=== PATIENT | female | born 1990 | race Caucasian/White ===

== ENCOUNTER 2018-02-16 22:14 | Emergency (ER) | payer OTHER ==
[~2018-02-16] VITALS: Ht 160 cm; Wt 52.2 kg
[2018-02-16 22:20] VITALS: BP 122/75
[2018-02-16] MEDS ORDERED: IV RINGERS SOLUTION,LACTATED 1,000 ML IV SCH (22:33)
--- NOTE | 2018-02-16 22:33 | ED.ADGEN ---
Adult General Chief Complaint Chief Complaint ".. I got a bump down on my private area.. and looked like puss coming out .....and it gotten really sore.... I can't hardly walk.. I ve had some cysts before...they had to drain...".." It is so swollen I can't pee" HPI HPI Patient is a 27 year old female who presents with complaints of cyst and pus drainage . Pain in vaginal area increasing the last 3-4 days. Pt. Life time sexual partners x 15-20. Pt. denies hx of STD. No travel or specific ill contacts. Pt. denies immunosuppression. No hx recent travel or specific ill contacts. Tetanus up to date. Review of Systems Review of Systems Constitutional:Complaints of fever. Eyes: Denies change in visual acuity, redness, or eye pain [] HENT: Denies nasal congestion or sore throat [] Respiratory: Denies cough or shortness of breath [] Cardiovascular: No additional information not addressed in HPI [] GI: Denies abdominal pain, nausea, vomiting, bloody stools or diarrhea [] : Denies dysuria or hematuria [] Complaints of vaginal abscess. Musculoskeletal: Denies back pain or joint pain [] Integument: Denies rash or skin lesions [] Neurologic: Denies headache, focal weakness or sensory changes [] Endocrine: Denies polyuria or polydipsia [] All other systems were reviewed and found to be within normal limits, except as documented in this note. Family History Family History Non-contributory Current Medications Current Medications Current Medications Medications (Trade) Dose Ordered Sig/Wai Start Time Stop Time Status Last Admin Dose Admin Azithromycin (Zithromax) 1,000 mg 1X ONCE 02/16/18 22:45 02/16/18 22:46 UNV 02/17/18 00:38 1,000 MG Bupivacaine HCl (Sensorcaine Mpf 0.5%) 30 ml 1X ONCE 02/16/18 22:45 02/16/18 22:46 UNV Ceftriaxone Sodium 1 gm/ Sodium Chloride 50 ml @ 100 mls/hr 1X ONCE 02/16/18 22:45 02/16/18 23:14 UNV Ceftriaxone Sodium (Rocephin) 1 gm STK-MED ONCE 02/17/18 00:29 5/29/18 00:32 DC Ketorolac Tromethamine (Toradol) 60 mg 1X ONCE 02/17/18 00:15 02/17/18 00:16 UNV 02/17/18 00:41 60 MG Lactated Ringer's 1,000 ml @ 1,000 mls/hr Q1H 02/16/18 22:33 02/16/18 23:32 UNV Lidocaine HCl 20 ml 1X ONCE 02/16/18 22:45 02/16/18 22:46 UNV Metronidazole (Flagyl) 2,000 mg 1X ONCE 02/16/18 22:45 02/16/18 22:46 UNV 02/17/18 00:36 2,000 MG Ondansetron HCl (Zofran Odt) 8 mg 1X ONCE 02/16/18 22:45 02/16/18 22:46 UNV See Nursing for home meds. Allergies Allergies NKDA Physical Exam Physical Exam Constitutional: Well developed, well nourished, in acute distress, non-toxic appearance. [] HENT: Normocephalic, atraumatic, bilateral external ears normal, oropharynx moist, no oral exudates, nose normal. [] Eyes: PERRLA, EOMI, conjunctiva normal, no discharge. [] Neck: Normal range of motion, no tenderness, supple, no stridor. [] Cardiovascular:Heart rate regular rhythm, no murmur [] Lungs & Thorax: Bilateral breath sounds equal at apex on auscultation [] Abdomen: Bowel sounds normal, soft, no tenderness, no masses, no pulsatile masses. [] Pt. has a 3 cm x 3 cm abscess. Lt. side Labia minora, appear to tract into vaginal wall. No cervical motion tenderness or adnexal tenderness. Rectal not tender. Skin: Warm, dry, no erythema, no rash. [] Back: No tenderness, no CVA tenderness. [] Extremities: No tenderness, no cyanosis, no clubbing, ROM intact, no edema. [] Neurologic: Alert and oriented X 3, normal motor function, normal sensory function, no focal deficits noted. [] Psychologic: Affect normal, judgement normal, mood normal. [] Current Patient Data Lab Results Laboratory Tests Test 02/16/18 22:35 Urine Collection Type Unknown Urine Color Yellow Urine Clarity Clear Urine pH 7.0 Urine Specific [place] 1.025 Urine Protein Neg (NEG-TRACE) Urine Glucose (UA) Neg mg/dL (NEG) Urine Ketones (Stick) Neg mg/dL (NEG) Urine Blood Trace (NEG) Urine Nitrite Neg (NEG) Urine Bilirubin Neg (NEG) Urine Urobilinogen Dipstick 0.2 mg/dL (0.2 mg/dL) Urine Leukocyte Esterase Neg (NEG) Urine RBC 0 /HPF (0-2) Urine WBC Occ /HPF (0-4) Urine Squamous Epithelial Cells Occ /LPF Urine Bacteria 0 /HPF (0-FEW) Urine Opiates Screen Neg (NEG) Urine Methadone Screen Neg (NEG) Urine Barbiturates Neg (NEG) Urine Phencyclidine Screen Neg (NEG) Urine Amphetamine/Methamphetamine Neg (NEG) Urine Benzodiazepines Screen Neg (NEG) Urine Cocaine Screen Neg (NEG) Urine Cannabinoids Screen Neg (NEG) Urine Ethyl Alcohol Neg (NEG) EKG EKG [] Radiology/Procedures Radiology/Procedures [] Course & Med Decision Making Course & Med Decision Making Pertinent Labs and Imaging studies reviewed. (See chart for details) Pt. refusing IV and Labs. Procedure Note: Incision and Drainage- Prepped area with betadine. Sensorcaine / Lidocaine- to abscess site. Stick x 1 with ll blade- resulted marked release of puss under pressure. 1/4 wide packing strip placed with 3- 0 vicryl suture x 1 to hold packing in. Pt. to have packing removed in 3 days. Sitz baths. Must follow up cultures. Keflex 500 three times a day x 10 days. Diflucan 100 x 3 days when antibiotic completed. Tylenol and Ibuprofen for pain. Must follow up. Area made need further surgical debridement. Return if any concerns. [] Final Impression Final Impression 1. []Labial-abscess Dragon Disclaimer Dragon Disclaimer This electronic medical record was generated, in whole or in part, using a voice recognition dictation system. LARA TALBOT MD February 16, 2018 22:32
[2018-02-16] MEDS ORDERED: LIDOCAINE 2% 20 ML VIAL. IJ ONE (22:45)
[2018-02-16] MEDS ORDERED: AZITHROMYCIN 250 MG TABLET. PO ONE (22:45)
[2018-02-16] MEDS ORDERED: ONDANSETRON ODT 4 MG TAB.RAPDIS PO ONE (22:45)
[2018-02-16] MEDS ORDERED: metroNIDAZOLE 500 MG TABLET PO ONE (22:45)
[2018-02-16] MEDS ORDERED: BUPIVACAINE MPF 0.5% 30 ML VIAL. SQ ONE (22:45)
[2018-02-16 23:17] LABS: BACTERIA,URINE 0 /HPF (0-FEW); BARBITURATES NEG (NEG); BENZODIAZEPINES NEG (NEG); BILIRUBIN,URINE NEG (NEG); CANNABINOIDS NEG (NEG); CLARITY,URINE CLEAR; COCAINE NEG (NEG); COLOR,URINE YELLOW; GLUCOSE,URINE NEG (NEG); METHADONE NEG (NEG); NITRITE,URINE NEG (NEG); OPIATES NEG (NEG); PHENCYCLIDINE NEG (NEG); RBC,URINE 0 /HPF (0-2); UROBILINOGEN,URINE 0.2 mg/dL (0.2 mg/dL); WBC,URINE OCC /HPF (0-4)
[2018-02-16 23:18] LABS: AMPHETAMINE/METHAMPHETAMINE NEG (NEG); SQUAMOUS EPITHELIAL CELL,UR OCC /LPF
[2018-02-17] MEDS ORDERED: KETOROLAC 60 MG/2 ML VIAL. IM ONE ×2 (00:15→00:31)
[2018-02-17] MEDS ORDERED: ONDANSETRON ODT 4 MG TAB.RAPDIS ONE (00:20)
[2018-02-17] MEDS ORDERED: CEPH-264 PO (00:22)
[2018-02-17] MEDS ORDERED: FLUC100T7 PO (00:22)
[2018-02-17] MEDS ORDERED: HYDR-79 PO (00:22)
[2018-02-17] MEDS ORDERED: cefTRIAXone SODIUM 1 GM VIAL IV ONE (00:29)
[2018-02-17] MEDS ORDERED: metroNIDAZOLE 500 MG TABLET ONE (00:30)
[2018-02-17] MEDS ORDERED: AZITHROMYCIN 250 MG TABLET. ONE (00:31)
== END 2018-02-17 01:29 | disposition home or self-care (01) ==
LOC: ER 22:14
DX: N76.4 Abscess of vulva (principal)
CPT/HCPCS: 36415; 56405; 80307; 81001; 81025; 96372; 99284; J0456; J1885; G0479

== ENCOUNTER 2018-02-19 13:27 | Emergency (ER) | payer OTHER ==
[~2018-02-19 13:27] MED LIST: CEPH-264 PO; FLUC100T7 PO; HYDR-79 PO
[2018-02-19 14:26] VITALS: BP 105/54
--- NOTE | 2018-02-19 14:31 | PHYS DOC ---
Past History Past Medical History: Other Past Surgical History: Other Alcohol Use: None Drug Use: None Adult General Chief Complaint Chief Complaint: SUTURE/STAPLE REMOVAL [facility] 27-year-old female presents for suture removal and packing removal. The patient had a vaginal abscess drained by my colleague 3 days ago and was told to return for removal. One stitch was placed and the packing to hold in place. Patient states she is feeling better and is taking her antibiotics as prescribed. She has no new complaints Review of Systems Review of Systems Constitutional: Denies fever or chills [] Eyes: Denies change in visual acuity, redness, or eye pain [] HENT: Denies nasal congestion or sore throat [] Respiratory: Denies cough or shortness of breath [] Cardiovascular: No additional information not addressed in HPI [] GI: Denies abdominal pain, nausea, vomiting, bloody stools or diarrhea [] : Stitch and packing to be removed[] Musculoskeletal: Denies back pain or joint pain [] Integument: Denies rash or skin lesions [] Neurologic: Denies headache, focal weakness or sensory changes [] Endocrine: Denies polyuria or polydipsia [] All other systems were reviewed and found to be within normal limits, except as documented in this note. Physical Exam Physical Exam Constitutional: Well developed, well nourished, no acute distress, non-toxic appearance. [] HENT: Normocephalic, atraumatic, bilateral external ears normal, oropharynx moist, no oral exudates, nose normal. [] Eyes: PERRLA, EOMI, conjunctiva normal, no discharge. [] Neck: Normal range of motion, no tenderness, supple, no stridor. [] Cardiovascular:Heart rate regular rhythm, no murmur [] Lungs & Thorax: Bilateral breath sounds clear to auscultation [] Abdomen: Bowel sounds normal, soft, no tenderness, no masses, no pulsatile masses. [] Skin: Warm, dry, no erythema, no rash. [] Back: No tenderness, no CVA tenderness. [] Extremities: No tenderness, no cyanosis, no clubbing, ROM intact, no edema. [] Neurologic: Alert and oriented X 3, normal motor function, normal sensory function, no focal deficits noted. [] Psychologic: Affect normal, judgement normal, mood normal. : There was one stitch to be removed. There was also packing that was not currently within the vaginal wall. There was no residual sign of a abscess pocket. She did still have tenderness in the area near the stitch. [] EKG EKG [] Radiology/Procedures Radiology/Procedures [] Course & Med Decision Making Course & Med Decision Making Pertinent Labs and Imaging studies reviewed. (See chart for details) I was able to remove the suture without incident. The packing was already expressed from the wound. The patient had immediate relief of her residual discomfort. There were no complications. She will continue her antibiotics and follow up with [facility]. [] Dragon Disclaimer Dragon Disclaimer This electronic medical record was generated, in whole or in part, using a voice recognition dictation system. Departure Departure: Impression: Primary Impression: Visit for suture removal Disposition: HOME, SELF-CARE Condition: STABLE Patient Instructions: Suture Removal-Brief MATT ALAS DO February 19, 2018 14:31
== END 2018-02-19 14:40 | disposition home or self-care (01) ==
LOC: ER 13:27
DX: Z48.01 Encounter for change or removal of surgical wound dressing (principal)
CPT/HCPCS: 99281